=== PATIENT | male | born 1995 | race Caucasian/White ===

== ENCOUNTER 2019-03-14 11:29 | Emergency (ER) | payer BC ==
[2019-03-14 12:31] VITALS: BP 111/80
--- NOTE | 2019-03-14 14:11 | UC ---
Complaint Male HPI - HPI Summary HPI Summary: Pt presents with c/o intermittent painful urination that began ~ 1 week ago. Pt denies discharge or risk for STD's. Pt states that he works out daily and occasionally has gets "irritated skin" on tip of penis occasionally but not currently. - History of Current Complaint Chief Complaint: UCGU Stated Complaint: URINARY Time Seen by Provider: 03/14/19 14:02 Hx Obtained From: Patient Onset/Duration: Sudden Onset, Lasting Weeks - 1, Still Present Timing: Intermittent, Lasting Seconds Severity Initially: Mild Severity Currently: Mild Pain Intensity: 0 Location: Penis Character: Burning Aggravating Factor(s): Voiding Associated Signs And Symptoms: Positive: Negative - Risk Factors Testicular Torsion: Negative - Allergies/Home Medications Allergies/Adverse Reactions: Allergies Allergy/AdvReac Type Severity Reaction Status Date / Time No Known Allergies Allergy Verified 03/14/19 12:27 PMH/Surg Hx/FS Hx/Imm Hx Previously Healthy: Yes - Surgical History Surgical History: Yes Surgery Procedure, Year, and Place: Traumatic Right Pneumothorax, 2015 - Family History Known Family History: Positive: Cardiac Disease - Social History Occupation: Student Lives: Dormitory/Roommates Alcohol Use: None Substance Use Type: None Smoking Status (MU): Never Smoked Tobacco Have You Smoked in the Last Year: No - Immunization History Vaccination Up to Date: Yes Review of Systems All Other Systems Reviewed And Are Negative: Yes Constitutional: Positive: Negative Skin: Positive: Negative Eyes: Positive: Negative ENT: Positive: Negative Respiratory: Positive: Negative Cardiovascular: Positive: Negative Gastrointestinal: Positive: Negative Genitourinary: Positive: Dysuria, Vaginal/Penile Tenderness, Ulceration/Lesion - resolved Motor: Positive: Negative Neurovascular: Positive: Negative Musculoskeletal: Positive: Negative Neurological: Positive: Negative Psychological: Positive: Negative Is Patient Immunocompromised?: No Physical Exam Triage Information Reviewed: Yes Appearance: Well-Appearing Vital Signs: Initial Vital Signs Temp 98.5 F 03/14/19 12:26 Pulse 70 03/14/19 12:26 Resp 16 03/14/19 12:26 BP 111/80 03/14/19 12:26 Pulse Ox 100 03/14/19 12:26 Vital Signs Reviewed: Yes Eye Exam: Normal ENT Exam: Normal ENT: Positive: Hearing grossly normal Dental Exam: Normal Neck exam: Normal Respiratory Exam: Normal Respiratory: Positive: No respiratory distress Abdominal Exam: Normal Abdomen Description: Positive: Nontender Musculoskeletal Exam: Normal Neurological Exam: Normal Psychological Exam: Normal Skin Exam: Normal - denies any rash or sores Complaint Male Course/Dx - Course Course Of Treatment: Pt denies pain with BM or with sitting - Differential Dx/Diagnosis Differential Diagnosis/HQI/PQRI: Epididymitis, Urinary Tract Infection Provider Diagnosis: Pain with urination, UTI (urinary tract infection) Discharge ED - Sign-Out/Discharge Documenting (check all that apply): Patient Departure All imaging exams completed and their final reports reviewed: No Studies - Discharge Plan Condition: Stable Disposition: HOME Prescriptions: Cephalexin CAP* [Keflex 500 CAP*] 500 mg PO Q8H #21 cap Patient Education Materials: Nonspecific Urethritis in Men (ED) Referrals: Adi AKBAR,Moise Zarate [Primary Care Provider] - If Needed Additional Instructions: Please follow up with your PCP as needed. Your test results should be completed in the next 3-4 days. Please note that we will call you if your test results are positive once the results are available. - Billing Disposition and Condition Condition: STABLE Disposition: Home
[2019-03-15 13:46] LABS: Chlamydia trachomatis NAA Negative (Negative); Neisseria gonorrhoeae (GC) NAA Negative (Negative)
== END 2019-03-14 14:21 | disposition home or self-care (01) ==
LOC: UCCORT 11:29
DX: N39.0 Urinary tract infection, site not specified (principal); R30.9 Painful micturition, unspecified
CPT/HCPCS: 81003; 87086; 87491; 87591; 99202; G0463

== ENCOUNTER 2019-03-21 15:03 | Emergency (ER) | payer BC ==
[2019-03-21 15:48] VITALS: BP 121/56
--- NOTE | 2019-03-21 16:52 | UC ---
Complaint Male HPI - HPI Summary HPI Summary: 23 year old male with n oPMH, + sexually active iwth one person, last seen 2/3 for possible UTI, started on ABX. States symptoms are much improved, about 90 % but still burning with urniation at times. no fever, chills, no back/ flank pain. - History of Current Complaint Chief Complaint: UCGU Stated Complaint: CONTINUED URINARY PAIN Time Seen by Provider: 03/21/19 16:20 Hx Obtained From: Patient, Family/High Pressure Operator - GF Onset/Duration: Sudden Onset, Lasting Weeks Timing: Intermittent - worse in AM Severity Currently: None Pain Intensity: 0 Pain Scale Used: 0-10 Numeric Location: Penis Character: Sharp - with urination, none normaly - Allergies/Home Medications Allergies/Adverse Reactions: Allergies Allergy/AdvReac Type Severity Reaction Status Date / Time No Known Allergies Allergy Verified 03/21/19 15:42 PMH/Surg Hx/FS Hx/Imm Hx Previously Healthy: Yes - Surgical History Surgical History: Yes Surgery Procedure, Year, and Place: Traumatic Right Pneumothorax, 2015 - Family History Known Family History: Positive: Cardiac Disease - Social History Occupation: Employed Full-time Alcohol Use: None Substance Use Type: None Smoking Status (MU): Never Smoked Tobacco Have You Smoked in the Last Year: No - Immunization History Vaccination Up to Date: Yes Review of Systems All Other Systems Reviewed And Are Negative: Yes Constitutional: Positive: Negative. Negative: Fever Skin: Positive: Negative. Negative: Rash Genitourinary: Positive: Urgency, Vaginal/Penile Burning Motor: Positive: Negative Neurovascular: Positive: Negative Psychological: Positive: Negative Is Patient Immunocompromised?: No Physical Exam Triage Information Reviewed: Yes Appearance: Well-Appearing, No Pain Distress, Well-Nourished Vital Signs: Initial Vital Signs Temp 98.6 F 03/21/19 15:43 Pulse 65 03/21/19 15:43 Resp 15 03/21/19 15:43 BP 121/56 03/21/19 15:43 Pulse Ox 99 03/21/19 15:43 Vital Signs Reviewed: Yes Eyes: Positive: Conjunctiva Clear ENT: Positive: Hearing grossly normal Abdomen Description: Positive: Nontender, No Organomegaly, Soft, Bruit, Other: - no suprabuic tenderness. Negative: CVA Tenderness (R), CVA Tenderness (L), Distended, Guarding, Hepatomegaly, Splenomegaly Neurological Exam: Normal Psychological Exam: Normal Complaint Male Course/Dx - Course Course Of Treatment: discussed possible prostatis due to negative cultures, symptoms. repeat cultures obtained. - Extend treatment to cover for prostatitis due to continued symptoms. - Increase fluid intake to dilute urine, flush out system. - Go to ER with flank pain, vomiting, fever > 102, painful urination, blood with urination. - Motrin TYlenol as needed for pain - Differential Dx/Diagnosis Provider Diagnosis: Acute prostatitis Discharge ED - Sign-Out/Discharge Documenting (check all that apply): Patient Departure All imaging exams completed and their final reports reviewed: No Studies - Discharge Plan Condition: Stable Disposition: HOME Prescriptions: Sulfamethox/Trimethoprim DS* [Bactrim DS 800/160 TAB*] 1 tab PO BID #20 tab Patient Education Materials: Prostatitis (ED) Referrals: Adi AKBAR,Moise Zarate [Primary Care Provider] - Additional Instructions: - Extend treatment to cover for prostatitis due to continued symptoms. - Increase fluid intake to dilute urine, flush out system. - Go to ER with flank pain, vomiting, fever > 102, painful urination, blood with urination. - Motrin TYlenol as needed for pain - Billing Disposition and Condition Condition: STABLE Disposition: Home - Attestation Statements Provider Attestation: I was available for consult. This patient was seen by the KAYLEIGH. The patient was not presented to, seen by, or examined by me. -Mikael
== END 2019-03-21 16:51 | disposition home or self-care (01) ==
LOC: UCCORT 15:03
DX: N41.0 Acute prostatitis (principal)
CPT/HCPCS: 81003; 87086; 99212; G0463